=== PATIENT | female | born 1985 | race Caucasian/White ===

== ENCOUNTER 2016-12-14 15:23 | Observation (INO) | payer BC ==
[2016-12-14] MEDS ORDERED: Rocephin 1000 MG INJ** 1,000 MG in Sodium Chloride 0.9% 100 ML IVPB 100 ML IV ONE (15:25)
[2016-12-14] MEDS ORDERED: DUONEB 0.5-3 MG/3 ml Neb IH ONE ×2 (15:25→15:35)
--- NOTE | 2016-12-14 15:36 | ERPHSYRPT ---
- History of Present Illness Time Seen by Provider: 12/14/16 15:25 Source: patient, family Exam Limitations: no limitations Physician History: recently diazgnosed with Pnuemonia; fever, chills and cough productive yellow phleghm x 7-10 days; on Amoxil; not getting better; increased SOB x 2 days; no hemoptosis; no Cp; no leg pains; no hx DVT or PE; no travel; was sick; no other exposures; also 3-4 months post Timing/Duration: day(s) (1-2 worse), week(s) (1), gradual onset, worse Severity of Dyspnea-Max: severe Severity of Dyspnea-Current: severe Possible Cause: no prior episodes Modifying Factors: Improves With: coughing Associated Symptoms: cough, fever, loss of appetite, chills, productive cough International travel in last 2 weeks: No Allergies/Adverse Reactions: No Known Drug Allergies Allergy (Unverified 12/14/16 15:32) Home Medications: Escitalopram Oxalate [Lexapro] 20 mg PO DAILY 12/14/16 [History] Gabapentin 400 mg [Neurontin 400 MG] 250 mg PO BID 12/14/16 [History] Norgestimate-Ethinyl Estradiol [Sprintec] 1 each PO DAILY 12/14/16 [History] - Review of Systems Constitutional: Fever, Chills Eyes: No Symptoms Ears, Nose, & Throat: No Symptoms Respiratory: Cough, Dyspnea, Dyspnea on Exertion (GRIFFITH), Wheezing Cardiac: No Chest Pain, No Palpitations, No Syncope Abdominal/Gastrointestinal: No Abdominal Pain, No Nausea, No Vomiting, No Diarrhea Genitourinary Symptoms: No Symptoms Musculoskeletal: Myalgias, No Neck Pain, No Fall, No Injury Skin: No Symptoms Neurological: No Symptoms Psychological: No Symptoms Endocrine: No Symptoms Hematologic/Lymphatic: No Symptoms Immunological/Allergic: No Symptoms - Past Medical History Pertinent Past Medical History: Yes - Past Surgical History Past Surgical History: No - Social History Smoking Status: Current some day smoker Exposure to second hand smoke: Yes Alcohol Use: Socially Drug Use: none Patient Lives Alone: No Significant Family History: no pertinent family hx - Female History Hx Now: No - Nursing Vital Signs Nursing Vital Signs: Initial Vital Signs Temperature 98 F 12/14/16 15:24 Pulse Rate 99 H 12/14/16 15:24 Respiratory Rate 24 12/14/16 15:24 Blood Pressure 133/88 12/14/16 15:24 O2 Sat by Pulse Oximetry 94 L 12/14/16 15:24 Pain Scale Pain Intensity 0 - Physical Exam General Appearance: moderate distress, alert, obese Eye Exam: PERRL/EOMI, eyes nml inspection, No photophobia Ears, Nose, Throat Exam: hearing grossly normal, normal ENT inspection, normal pharynx Neck Exam: normal inspection, non-tender, supple, full range of motion, No meningismus, No JVD Respiratory Exam: respiratory distress (moderate), airway intact, diminished breath sounds, rhonchi (R>L), wheezing (scattered diffuse), No normal breath sounds, No chest tenderness, No lungs clear, No pleural rub Cardiovascular/Chest Exam: normal heart sounds, regular rate/rhythm, normal peripheral pulses, tachycardia (100), No murmur, No edema, No JVD, No friction rub Abdominal/Gastrointestinal Exam: soft, normal bowel sounds, No tenderness, No guarding, No rebound, No organomegaly Rectal Exam: deferred Extremity Exam: non-tender, normal range of motion, normal inspection, No calf tenderness, No hoang's sign Peripheral Pulses Exam: carotid (R): 4+, carotid (L): 4+, femoral (R): 4+, femoral (L): 4+, dorsalis-pedis (R): 3+, dorsalis-pedis (L): 3+ Neurologic Exam: alert, oriented x 3, cooperative, etched circuit processor II-XII nml as tested, normal mood/affect, nml cerebellar function, nml station & gait, sensation nml Skin Exam: normal color, warm, dry, No rash SpO2 Interpretation: normal SpO2: 93 Oxygen Delivery: Room Air - Course Nursing assessment & vital signs reviewed: Yes - Radiology Exams Chest X-ray Interpretation: Interpreted by me, Nml Heart Size, Infiltrates (LLL>RLL), Pneumonia (left base), Other (elevatged left hemidiaphraghm new since ) - CT Exams Chest CT Interpretation: Tele-radiologist Report, No PE, Other (atelectasis and infiltrates) Ordered Tests: Active Orders 24 hr Category Date Time Status Bedrest with BRP/BSC ROUTINE Activity 12/14/16 18:30 Ordered Admission/Status Order ROUTINE Care 12/14/16 18:29 Ordered Call Admit Doctor for Orders ON ADMISSION Care 12/14/16 18:30 Ordered Automat Car Attendant STAT Care 12/14/16 15:26 Active Code Status Order ROUTINE Care 12/14/16 18:29 Ordered IV Care Q6H Care 12/14/16 18:29 Ordered IV Insertion STAT Care 12/14/16 15:25 Active Oxygen-ED Only NASAL CANNULA 2 lpm Care 12/14/16 15:57 Active Pulse Oximetry (ED) STAT Care 12/14/16 15:25 Active Rectal Temperature STAT Care 12/14/16 15:25 Active Telemetry ROUTINE Care 12/14/16 18:28 Ordered Weight,Daily 0600 Care 12/14/16 18:28 Ordered Regular Diet Diet 12/14/16 Dinner Ordered CHEST 1 VIEW (PORTABLE) Stat Exams 12/14/16 15:26 Completed CHEST WITH CONTRAST [CT] Stat Exams 12/14/16 16:19 Taken BLOOD CULTURE Stat Lab 12/14/16 16:00 Received BMP Stat Lab 12/14/16 15:47 Completed CBC W DIFF Stat Lab 12/14/16 15:47 Completed CULTURE,SPUTUM Stat Lab 12/14/16 17:10 Ordered D-DIMER QUANTITATION Stat Lab 12/14/16 15:47 Completed Lactic Acid AM.LAB Lab 12/15/16 04:00 Ordered Lactic Acid Stat Lab 12/14/16 15:25 Completed Lactic Acid Stat Lab 12/14/16 17:55 Completed MAGNESIUM Stat Lab 12/14/16 15:47 Completed Manual Differential NC Stat Lab 12/14/16 15:47 Completed PROTIME WITH INR Stat Lab 12/14/16 15:47 Completed Oxygen NASAL CANNULA 2 lpm RT 12/14/16 18:28 Ordered Peak Expiratory Flow Rate ONCE RT 12/14/16 15:25 Completed Pulse Oximetry CONTINUOUS RT 12/14/16 18:31 Ordered Respiratory Nebulizer STAT RT 12/14/16 15:28 Completed Respiratory Therapy Consult ROUTINE RT 12/14/16 18:28 Ordered Transfer Order Routine Transfer 12/14/16 Ordered Medication Summary Generic Name Dose Route Start Last Admin Trade Name Freq PRN Reason Stop Dose Admin Acetaminophen 650 mg 12/14/16 18:28 Tylenol 325 Mg PO 01/13/17 18:27 Q4H PRN PRN PAIN AND/OR FEVER Albuterol/Ipratropium 3 ml 12/14/16 19:00 Duoneb 0.5-3 Mg/3 Ml Neb IH 01/13/17 18:59 Q6HRT KIRSTIN Enoxaparin Sodium 40 mg 12/15/16 10:00 Enoxaparin Sodium SQ 01/14/17 09:59 DAILY KIRSTIN Famotidine 20 mg 12/14/16 22:00 Pepcid 20 Mg Vial IV 01/13/17 21:59 Q12HT KIRSTIN Sodium Chloride 1,000 mls @ 100 mls/hr 12/14/16 15:30 12/14/16 15:59 Sodium Chloride 0.9% 1000 Ml IV 01/13/17 15:29 999 mls/hr .Q10H KIRSTIN Infusion Sodium Chloride 1,000 mls @ 999 mls/hr 12/14/16 16:00 12/14/16 17:44 Sodium Chloride 0.9% 1000 Ml IV 12/14/16 18:00 999 mls/hr .Q1H1M KIRSTIN Administration Ceftriaxone Sodium/Dextrose 1 g in 50 mls @ 100 mls/hr 12/15/16 10:00 Rocephin 1 Gm-D5w 50 Ml Bag IV 01/14/17 09:59 Q24H10 KIRSTIN Sodium Chloride 1,000 mls @ 100 mls/hr 12/14/16 18:30 Sodium Chloride 0.9% 1000 Ml IV 01/13/17 18:29 .Q10H KIRSTIN Methylprednisolone Sodium Succinate 80 mg 12/14/16 18:30 Solu-Medrol 125 Mg IV 01/13/17 18:29 Q6H KIRSTIN Methylprednisolone Sodium Succinate 125 mg 12/14/16 18:33 Solu-Medrol 125 Mg IV 12/14/16 18:34 STAT ONE Discontinued Medications Generic Name Dose Route Start Last Admin Trade Name Freq PRN Reason Stop Dose Admin Acetaminophen 650 mg 12/14/16 15:57 12/14/16 16:04 Tylenol 325 Mg PO 12/14/16 15:58 650 mg STAT STA Administration Acetaminophen Confirm 12/14/16 16:01 Tylenol 325 Mg Administered 12/14/16 16:02 Dose 650 mg .ROUTE .STK-MED ONE Albuterol/Ipratropium 3 ml 12/14/16 15:25 12/14/16 15:42 Duoneb 0.5-3 Mg/3 Ml Neb IH 12/14/16 15:26 3 ml STAT ONE Administration Albuterol/Ipratropium Confirm 12/14/16 15:35 Duoneb 0.5-3 Mg/3 Ml Neb Administered 12/14/16 15:36 Dose 3 ml IH .STK-MED ONE Enoxaparin Sodium 120 mg 12/14/16 16:21 12/14/16 16:41 Enoxaparin Sodium SQ 12/14/16 16:22 120 mg 1XONLY ONE Administration Enoxaparin Sodium Confirm 12/14/16 16:38 Enoxaparin Sodium Administered 12/14/16 16:39 Dose 120 mg SQ .STK-MED ONE Ceftriaxone Sodium 1,000 mg/ 100 mls @ 100 mls/hr 12/14/16 15:25 12/14/16 16: 05 Sodium Chloride IV 12/14/16 16:24 100 mls/hr STAT ONE Administration Ceftriaxone Sodium/Dextrose Confirm 12/14/16 15:50 Rocephin 1 Gm-D5w 50 Ml Bag Administered 12/14/16 15:51 Dose 1 g in 50 mls @ ud IV .STK-MED ONE Lab/Rad Data: Laboratory Result Diagrams 12/14/16 15:47 12/14/16 15:47 Laboratory Results 12/14/16 12/14/16 12/14/16 Range/Units 17:55 15:55 15:47 WBC (4.0-10.5) K/mm3 RBC (4.1-5.4) M/mm3 Hgb (12.0-16.0) gm/dl Hct (35-47) % MCV (78-100) fl MCH (26-32) pg MCHC (32-36) g/dl RDW (11.5-14.0) % Plt Count (150-450) K/mm3 MPV (6-9.5) fl INR 1.06 (0.8-3.0) D-Dimer 623 H* (0-500) ng/mL Sodium (136-145) mEq/L Potassium (3.5-5.1) mEq/L Chloride (98-107) mEq/L Carbon Dioxide (21-32) mEq/L Anion Gap (5-15) MEQ/L BUN (9-20) mg/dL Creatinine (0.55-1.30) mg/dl Estimated GFR ML/MIN Glucose (70-110) MG/DL Lactic Acid 0.9 (0.4-2.0) Calcium (8.5-10.1) mg/dL Magnesium (1.8-2.4) mg/dL Influenza Type A Ag NEGATIVE (NEGATIVE) Influenza Type B Ag NEGATIVE (NEGATIVE) RSV (PCR) NEGATIVE (Negative) 12/14/16 12/14/16 12/14/16 Range/Units 15:47 15:47 15:25 WBC 9.3 (4.0-10.5) K/mm3 RBC 4.97 (4.1-5.4) M/mm3 Hgb 15.3 (12.0-16.0) gm/dl Hct 45.6 (35-47) % MCV 91.8 (78-100) fl MCH 30.8 (26-32) pg MCHC 33.6 (32-36) g/dl RDW 12.5 (11.5-14.0) % Plt Count 309 (150-450) K/mm3 MPV 10.4 H (6-9.5) fl INR (0.8-3.0) D-Dimer (0-500) ng/mL Sodium 140 (136-145) mEq/L Potassium 4.1 (3.5-5.1) mEq/L Chloride 105 (98-107) mEq/L Carbon Dioxide 21.9 (21-32) mEq/L Anion Gap 17.1 H (5-15) MEQ/L BUN 14 (9-20) mg/dL Creatinine 1.23 (0.55-1.30) mg/dl Estimated GFR 55 ML/MIN Glucose 104 (70-110) MG/DL Lactic Acid 3.5 H (0.4-2.0) Calcium 9.2 (8.5-10.1) mg/dL Magnesium 1.7 L (1.8-2.4) mg/dL Influenza Type A Ag (NEGATIVE) Influenza Type B Ag (NEGATIVE) RSV (PCR) (Negative) reviewed - Progress Progress: improved (after duoneb), re-examined (after meds and treatment) Air Movement: poor Progress Note: 12/14/16 15:45 IV started; will get peak flow and give duonebs; ATBs and IV fluids and get cultures; will monitor and recheck 12/14/16 15:59 peak flow pre 500 and post 510; clinically improved post duo neb; sats improved ; will give sesis protocol and fluid bolus and ATBs with lactic acid 3.5; will monitor and recheck 12/14/16 16:20 elevated D Dimer and post with sob; will get CT to evaluate for PE and give lovenox; cbc ok; will monitor and recheck 12/14/16 16:21 CXR shows LLL infiltrate and elevated diaphraghm 12/14/16 16:47 improved VS and breath sounds and decreased sob and resp distress after IV fluids and meds; patient infomred of elevated D Dimer and pending CT; will monitorand revheck 12/14/16 17:53 patient continues to improve; second lactate to be drawn 12/14/16 18:09 BS improved; air movement improved; sats good; CT negative for PE; family at bedside; repeat lactate 0.9 12/14/16 18:25 Dr Gauthier covering for Dr Anthony consulted and will admit; patietn and family informed; rachael; Influ A & B neg RSV neg 12/14/16 18:34 will give a dose of steriods Blood Culture(s) Obtained: Yes Antibiotics given: Yes Discussed with : Airam (consulted and will admit) Will see patient in: hospital (observation) Counseled pt/family regarding: lab results, diagnosis, need for follow-up, rad results, smoking cessation - Departure Time of Disposition: 18:26 Departure Disposition: Observation Clinical Impression: Pneumonia, Sepsis, Elevated d-dimer, Elevated serum lactate dehydrogenase Condition: Fair Critical Care Time: Yes Critical Care Time(excluding separately billable procedures): 30-74 minutes Referrals: DENISE ANTHONY [Primary Care Provider] - MIQUEL GAUTHIER [ACTIVE STAFF] -
[2016-12-14 15:40] LABS: Lactic Acid 3.5 (0.4-2.0)
[2016-12-14] MEDS ORDERED: ROCEPHIN 1 Gm-D5w 50 ml Bag** 1 G/50 ML IVPB IV ONE (15:50)
[2016-12-14] MEDS: Sodium Chloride 0.9% 1000 ML 1,000 ML IV SCH ×2 (15:52→20:13)
[2016-12-14 15:55] LABS: Mean Cell Volume 91.8 fl (78-100); Mean Corpuscular Hemoglobin 30.8 pg (26-32); Mean Platelet Volume 10.4 fl (6-9.5); Platelet Count 309 K/mm3 (150-450); Red Blood Count 4.97 M/mm3 (4.1-5.4); Red Cell Distribution Width 12.5 % (11.5-14.0); White Blood Count 9.3 K/mm3 (4.0-10.5)
[2016-12-14] MEDS ORDERED: TYLENOL 325 MG PO STA (15:57)
[2016-12-14] MEDS ORDERED: Sodium Chloride 0.9% 1000 ML 1,000 ML IV SCH ×2 (16:00→18:30)
[2016-12-14] MEDS ORDERED: TYLENOL 325 MG ONE (16:01)
[2016-12-14 16:04] LABS: INR 1.06 (0.8-3.0); PROTIME 11.8 SECONDS (9.95-12.35)
[2016-12-14 16:08] LABS: ANION GAP 17.1 MEQ/L (5-15); Carbon Dioxide 21.9 mEq/L (21-32); MAGNESIUM 1.7 mg/dL (1.8-2.4); Potassium 4.1 mEq/L (3.5-5.1)
[2016-12-14] MEDS ORDERED: ENOXAPARIN SODIUM SQ ONE ×2 (16:21→16:38)
--- NOTE | 2016-12-14 16:23 | XRAY ---
Indication: Fever, cough, and short of breath. Comparison: December 07, 2016. Portable chest better inflated today with again left lower lobe infiltrate/atelectasis minimally improved. Remaining right lung and heart normal.
[2016-12-14] MEDS ORDERED: TYLENOL 325 MG PO PRN (18:28)
[2016-12-14] MEDS ORDERED: solu-MEDROL 125 MG IV ONE (18:33)
[2016-12-14] MEDS: solu-MEDROL 125 MG IV SCH (20:00)
[2016-12-14] MEDS: Pepcid 20 MG VIAL IV SCH (21:31)
[2016-12-14 22:58] LABS: Basophil 1 % (0.0-1.0); Eosinophil 2 % (0.00-3.0); Platelet Estimate NORMAL (NORMAL); Total Cells Counted 100
[2016-12-15] MEDS: solu-MEDROL 125 MG IV SCH ×2 (00:02→06:02)
[2016-12-15] MEDS: DUONEB 0.5-3 MG/3 ml Neb IH SCH ×5 (00:07→13:09)
[2016-12-15] MEDS ORDERED: Sodium Chloride 0.9% 1000 ML 1,000 ML ONE (06:01)
[2016-12-15] MEDS: Sodium Chloride 0.9% 1000 ML 1,000 ML IV SCH (06:03)
[2016-12-15 08:08] VITALS: O2SAT 94
--- NOTE | 2016-12-15 08:37 | XRAY ---
Indication: Short of breath, tachycardia, and elevated d-dimer. . Multiple contiguous axial images obtained through the chest using 80 cc Isovue 370 contrast and PE protocol. Comparison: None There is adequate opacification of the pulmonary arteries. Mild respiration artifact limits evaluation of the more distal pulmonary arteries. No central pulmonary embolus. Heart is not enlarged. Aorta is normal in course and caliber. No pathologic mediastinal/hilar lymphadenopathy. Examination of the lung parenchyma demonstrates bilateral lower lobe subsegmental atelectasis. No pulmonary mass, infiltrate, or effusion. Bony thorax intact. Incidental small T6-T7 left paracentral disc herniation with calcification favoring chronic process. Limited upper abdomen unremarkable. Impression: 1. Mild respiration artifact. No central pulmonary embolus. 2. Bilateral lower lobe atelectasis. 3. Incidental chronic appearing T6-T7 disc herniation. MRI may yield further information if clinically warranted. CTDI 17.77
[2016-12-15] MEDS: Pepcid 20 MG VIAL IV SCH (08:59)
[2016-12-15] MEDS ORDERED: Phenergan 25 MG INJ IV PRN (09:00)
--- NOTE | 2016-12-15 09:29 | HP ---
HISTORY OF PRESENT ILLNESS: This is a 31 year-old patient who presented to the emergency department with shortness of breath and cough. She had been seen at [facility] on 12/07/2016 and diagnosed with left lower lobe pneumonia that was confirmed with x-ray. At that time she had a fever up to 101.6F. She was given Augmentin to take twice a day which she had taken but states that she did not have much improvement. She reports yesterday she felt short of breath and shaky. She denies any fever since being in [facility]. She has had a cough that has been nonproductive. She reports that she does feel better since being here. She reports that she was on oxygen a little bit in the emergency department. She also has some nausea and vomiting when this illness first started but none since then. Her has been sick and her 3 year-old daughter has had a cold but both of them are getting better. REVIEW OF SYSTEMS: She denies any diarrhea. No abdominal pain. No rashes. Otherwise review of systems as noted in the history of present illness. She also had a decreased appetite yesterday but ate better today. PAST MEDICAL HISTORY: Anxiety. PAST SURGICAL HISTORY: She had D&C in 2013, a cyst removed from her right hand and finger in 2004. She had knee surgery with release and scopes in 2003 and 2004 bilaterally. MEDICATIONS: Lexapro 20 mg p.o. daily, gabapentin 100 mg b.i.d., Sprintec 1 tablet p.o. daily. ALLERGIES: NKDA. SOCIAL HISTORY: She used to smoke one pack per day of cigarettes for the past ten years. She quit smoking when she was . Her child is about 4 months old. She restarted smoking two months ago but reports she has not had any tobacco for the past two weeks and plans to quit. She denies any alcohol use. She is and lives with her and 3 year-old daughter and infant. FAMILY HISTORY: Her mother and father are living are healthy. PHYSICAL EXAMINATION: VITAL SIGNS: Temperature current 97.9F, temperature max 98.3F, heart rate 54 to 120 currently 54, respiratory rate 16 to 24 currently 20, blood pressure 124 to 163 over 68 to 88, weight 114 kg. Oxygen saturation 93 to 96% on 2 liters to room air. GENERAL: The patient is pleasant talkative lady sitting up in no acute distress. CVS: Her heart rate is approximately 140 on exam. It is regular. No murmurs, gallops or rubs. CHEST: Clear to auscultation bilaterally. No crackles or wheezes. Equal breath sounds. No retractions. ABDOMEN: Soft, nontender, nondistended with normal bowel sounds. EXTREMITIES: No clubbing, cyanosis or edema. SKIN: Warm, dry and intact. LABORATORY DATA AND TESTS: On admission her white blood cell count was normal. D-dimer was 623. Magnesium was a little bit low at 1.7. Influenza A/B and respiratory syncytial virus were negative. Chest x-ray was read as left lower lobe pneumonia. Chest CT was read as no central pulmonary embolus, bilateral lower lobe atelectasis and chronic appearing T6-T7 disc herniation. ASSESSMENT AND PLAN: 1) LEFT LOWER LOBE PNEUMONIA: She was started on ceftriaxone in the emergency department, will plan to continue with this. She has had some improvement. If she continues to do well during the day may be able to discharge her to home on Cefdinir 300 mg p.o. b.i.d. She was also started on methylprednisolone IV and she reports she does feel much better. 2) ELEVATED D-DIMER: Her chest CT was negative for pulmonary embolism. She was given one dose of Lovenox 1 mg/kg and is now on deep venous thrombosis prophylaxis dose as her chest CT was negative for pulmonary embolism. 3) TOBACCO ABUSE: The patient reports that she plans to quit smoking. She may have some underlying chronic obstructive pulmonary disease from her history of use but has not yet been diagnosed. 4) ANXIETY: Will continue with her home medications. She reported that she has taken both Lexapro and gabapentin for anxiety in the past.
[2016-12-15] MEDS ORDERED: MEDICATION INTERVENTION MC PRN (09:49)
[2016-12-15] MEDS ORDERED: Neurontin 100 MG PO SCH (10:00)
[2016-12-15] MEDS ORDERED: Lexapro 10 MG PO SCH (10:00)
[2016-12-15] MEDS ORDERED: ENOXAPARIN SODIUM SQ SCH (10:00)
[2016-12-15] MEDS ORDERED: NON-FORMULARY ITEM (Escitalopram Oxalate [Lexapro] 20 MG) PO SCH (10:00)
[2016-12-15] MEDS ORDERED: ROCEPHIN 1 Gm-D5w 50 ml Bag** 1 G/50 ML IVPB IV SCH (10:00)
[2016-12-15] MEDS ORDERED: NORGESTIMATE ETHINYL ESTRADIOL PO SCH (10:00)
[2016-12-15 11:38] VITALS: BP 141/70
[2016-12-15] MEDS ORDERED: Robitussin 100 MG/5 ML PO PRN (12:36)
[2016-12-15 13:14] VITALS: PULSE 100
[2016-12-15] MEDS ORDERED: solu-MEDROL 125 MG IV SCH (14:00)
--- NOTE | 2016-12-15 16:47 | PCM.DCORD ---
- Discharge Discharge Date: 12/15/16 Disposition: Home, Self-Care Condition: Fair Prescriptions: New Prednisone 20 mg [Deltasone 20 mg] 40 mg PO DAILY #8 tablet Guaifenesin 10 ml PO Q6H PRN #200 ml PRN Reason: Cough Gabapentin [Neurontin] 100 mg PO BID #60 capsule Cefdinir 300 mg [Omnicef 300 mg] 300 mg PO BID #12 capsule Albuterol 8 gm Mdi Hfa [Ventolin Hfa MDI] 2 puffs IN Q4H PRN #1 hfa.aer.ad PRN Reason: Shortness Of Breath/Wheezing Continue Norgestimate-Ethinyl Estradiol [Sprintec] 1 each PO DAILY Escitalopram Oxalate [Lexapro] 20 mg PO DAILY Discontinued Gabapentin 400 mg [Neurontin 400 MG] 250 mg PO BID Instructions: Pneumonia -- Adult, Shortness of Breath, Quit Smoking Follow up with: DENISE ANTHONY [Primary Care Provider] - Forms: Patient Portal Information
== END 2016-12-15 17:50 | disposition home or self-care (01) ==
LOC: ED 15:23 → MED SURG 19:05
PROVIDERS: ADMIT Family Medicine; ATTEND Internal Medicine
DX: J18.1 Lobar pneumonia, unspecified organism (principal); F41.9 Anxiety disorder, unspecified; R79.1 Abnormal coagulation profile; Z72.0 Tobacco use
CPT/HCPCS: 36000; 36415; 71010; 71260; 80048; 83605; 83735; 85025; 85379; 85610; 87040; 87070; 87631; 93041; 93268; 94150; 94640; 94760; 96360; 96361; 96372; 96374; 99285; G0378; J0696; J1650; J2930; A9270-GY

== ENCOUNTER 2024-06-20 06:05 | Day surgery (SDC) | payer OTHER ==
[2024-06-20 06:29] VITALS: RESP 16
[2024-06-20] MEDS: TYLENOL EXTRA STRENGTH 500 MG PO ONE (06:43)
[2024-06-20] MEDS: NEURONTIN PO ONE (06:43)
[2024-06-20] MEDS: celeBREX 100 MG PO ONE (06:44)
[2024-06-20] MEDS: Lactated Ringers 1,000 ML IV SCH (06:52)
[2024-06-20] MEDS ORDERED: Versed 2 MG/2 ML Injection ONE (07:42)
[2024-06-20] MEDS ORDERED: SUBLIMAZE 100 MCG/2 ML ONE ×3 (07:42→09:15)
[2024-06-20] MEDS ORDERED: propofoL IV ONE (07:42)
[2024-06-20] MEDS ORDERED: ROCURONIUM BROMIDE IV ONE (07:44)
[2024-06-20] MEDS: CEFAZOLIN 2 GM/100 ML NaCl 2 GM/100 ML IVPB IV SCH (07:49)
[2024-06-20] MEDS ORDERED: MARCAINE 0.25% PF/ EPI 1:200,000 ONE (08:14)
[2024-06-20] MEDS ORDERED: TORAdol 30 mg Injection ONE (08:33)
[2024-06-20] MEDS ORDERED: BRIDION 200MG/2ML IV ONE (08:33)
[2024-06-20] MEDS ORDERED: Zofran 4 MG/2 ML VIAL ONE (08:33)
[2024-06-20 10:13] VITALS: BP 131/87; PULSE 79; TEMP 97.5; O2SAT 100
--- NOTE | 2024-06-23 08:45 | OP ---
SURGERY DATE/TIME: 06/20/2024 PREOPERATIVE DIAGNOSES: 1) Right knee pain. 2) Right knee medial meniscus tear. POSTOPERATIVE DIAGNOSIS: Right knee chondromalacia of patella. PROCEDURES: 1) Right knee diagnostic arthroscopy. 2) Chondroplasty of the patella. 3) Arthroscopic partial limited synovectomy. SURGEON: Gian Jones MD INDICATIONS: This patient was seen and followed in the office for a chief complaint of right knee pain. She has a history of patellar instability and had lateral release procedures on her knees many years ago. Symptoms included medial-sided knee pain. MRI showed evidence of a medial meniscus tear, primarily intrameniscal degeneration with communication to the posterior surface. We suspected an unstable meniscal fragment and recommended arthroscopy with meniscectomy and possible meniscal repair. We discussed her history of instability, but given that she had already had a lateral release, plans were not made for any bony realignment procedures. Consent was obtained, and procedure was performed as follows. DESCRIPTION OF PROCEDURE AND FINDINGS: Patient was seen preoperatively and the operative limb and plan were reviewed. Her limb was initialed. She was given IV antibiotics, taken to the operating room, and placed under general anesthesia in a supine position. We applied a tourniquet to the right thigh over Webril padding. The right thigh was secured in a leg-holding device, and the lower portion of the bed was moved to allow flexion at the knee. Sterile prep and drape of the right lower extremity was carried out. Time-out was held. We then exsanguinated the limb with an Esmarch and inflated the tourniquet to 300 mmHg. A lateral portal was established, and the arthroscope was advanced into the knee. The knee was distended and examination was commenced. We viewed the suprapatellar pouch and found no loose bodies or abnormalities. Patellofemoral articulation was next viewed. It was difficult to visualize patella initially, but the femoral sulcus was well visualized and showed intact surface cartilage with no evidence of significant surface wear beyond grade 1 chondromalacia. Medial gutter was normal. Medial joint space was then entered. The condylar surfaces of the medial femoral condyle and tibial plateau were within normal limits. The meniscus itself appeared visually normal. The femoral surface was easily seen and showed no evidence of tearing. A probe was inserted through a medial portal. The meniscus was probed along its femoral and tibial surfaces. No clefts or tears were identified on the tibial or femoral surface. The root was obscured due to synovitis. We used a shaver to debride the synovium from the ligamentum mucosum and from the posteromedial aspect of the knee to visualize the root, which appeared normal as well. ACL appeared normal. Lateral joint space was examined in figure-4 position. Grade 2 to 3 chondromalacia was noted on a limited portion of the lateral tibial plateau. The lateral meniscus was normal in appearance and stable to probing. Lateral gutter was normal. Medial gutter normal. We established a superolateral portal for better visualization of the patella. Bringing the scope in from superolateral, we could see once again the sulcus and better visualization of the patella. The sulcus appeared normal. The patella had fissures at its apex. Upon probing, there was a loose flap of cartilage along the apex. We used our shaver through the medial portal to debride this and lightly smooth the patellar apex. At that point we terminated the procedure, drained fluid, and closed the portals. Local anesthesia was administered with 20 mL of 0.25% Marcaine. Sterile dressings were applied, and patient was taken to the recovery room.
== END 2024-06-20 10:27 | disposition home or self-care (01) ==
LOC: SDC 06:05
PROVIDERS: ATTEND Orthopaedic Surgery
DX: S83.241A Other tear of medial meniscus, current injury, right knee, initial encounter (principal); M25.561 Pain in right knee; M22.41 Chondromalacia patellae, right knee
CPT/HCPCS: 29875; 29877; J0690; J1885; J2250; J2405; J2704; J3010; A9270-GY